=== PATIENT | female | born 1960 | race Caucasian/White ===

== ENCOUNTER 2018-07-28 20:19 | Emergency (ER) | payer OTHER ==
[2018-07-28 20:26] VITALS: RESP 18
[2018-07-28] MEDS ORDERED: HYDROcodone/APAP 5-325MG 1 EACH TAB PO STA (21:08)
--- NOTE | 2018-07-28 21:20 | ED ---
General Adult HPI - General Chief complaint: Back Pain/Injury Stated complaint: Back pain Time Seen by Provider: 07/28/18 20:26 Source: patient, family, RN notes reviewed Mode of arrival: ambulatory Limitations: no limitations - History of Present Illness Initial comments: 58-year-old female presents to the emergency department for a chief complaint of left sided mid back pain 2 days. Patient states she noticed the pain Sunday when she woke up. She states it is a sharp pain worsened with movement. Patient states she has been laying on a ball to massage out the area. She states her has also been massaging it which has been helping. Patient states that 3 days ago she was lifting rocks and may have injured it then. She denies any spinal pain. Patient denies any past spinal surgeries. She denies any bladder or bowel changes or numbness of the groin her buttocks. Patient denies any fevers, chronic steroid use, history of cancer , or IV drug abuse. Patient states she took 2 800 mg of Motrin at 1 and another 800 mg of Motrin at 5. Patient states she is also been taking Flexeril. She states that Motrin does help. Patient denies any blood in the urine. Patient has no other complaints at this time including shortness of breath, chest pain, abdominal pain, nausea or vomiting, headache, or visual changes. - Related Data Previous Rx's Medication Instructions Recorded Famotidine [Pepcid] 20 mg PO BID #20 tablet 07/28/18 Lidocaine 5% Patch [Lidoderm 5% 1 patch TOPICAL DAILY PRN #2 patch 07/28/18 Patch] predniSONE 50 mg PO DAILY #5 tablet 07/28/18 Allergies Allergy/AdvReac Type Severity Reaction Status Date / Time No Known Allergies Allergy Verified 07/28/18 20:25 Review of Systems ROS Statement: Those systems with pertinent positive or pertinent negative responses have been documented in the HPI. ROS Other: All systems not noted in ROS Statement are negative. Past Medical History Additional Past Medical History / Comment(s): right hip pain History of Any Multi-Drug Resistant Organisms: None Reported Past Surgical History: Tonsillectomy Past Psychological History: No Psychological Hx Reported Smoking Status: Former smoker Past Alcohol Use History: None Reported Past Drug Use History: None Reported General Exam Limitations: no limitations General appearance: alert, in no apparent distress Head exam: Present: atraumatic, normocephalic, normal inspection Eye exam: Present: normal appearance. Absent: scleral icterus, conjunctival injection ENT exam: Present: normal exam, normal oropharynx, mucous membranes moist, normal external ear exam Neck exam: Present: normal inspection, full ROM. Absent: tenderness, meningismus, lymphadenopathy Respiratory exam: Present: normal lung sounds bilaterally. Absent: respiratory distress, wheezes, rales, rhonchi, stridor Cardiovascular Exam: Present: regular rate, normal rhythm, normal heart sounds. Absent: systolic murmur, diastolic murmur, rubs, gallop, clicks GI/Abdominal exam: Present: soft, normal bowel sounds. Absent: distended, tenderness (No abdominal tenderness), guarding, rebound, rigid Extremities exam: Present: normal capillary refill (Capillary refill less than 2 seconds and PT pulse 2+ and lower extremities bilaterally), other (Sensation intact in the lower extremities bilaterally) Back exam: Present: tenderness (Tenderness to the left sided thoracic paraspinal muscles. Reproducible). Absent: full ROM (Patient has full flexion and extension of the lumbar spine. Patient has full rotation to the right but decreased rotation of to the left due to pain.), CVA tenderness (R), CVA tenderness (L) (No CVA tenderness), vertebral tenderness (No tenderness in the cervical, thoracic, or lumbar spines) Neurological exam: Present: alert, oriented X3, CN II-XII intact Psychiatric exam: Present: normal affect, normal mood Course Vital Signs 07/28/18 20:21 Temperature 98.2 F Pulse Rate 92 Respiratory 18 Rate Blood Pressure 152/92 O2 Sat by Pulse 97 Oximetry Medical Decision Making - Medical Decision Making 58-year-old female presents to the emergency department for a chief complaint of mid back pain 2 days. Patient was lifting heavy rocks 3 days ago and noticed the pain when wakening the next day. No other injuries. Patient states she has been massaging it out. She denies any back problems. No bladder or bowel changes or saddle anesthesia. No indications of cauda equina syndrome.. Neurovascular intact in lower extremities bilaterally and patient is ambulatory. Pain is reproducible to palpation and massaging the area helps her to feel better on exam. Tenderness is paraspinal along the mid thoracic area left side. No spinal tenderness. Pain worsens when patient twists to the left. Due to reproducibility of pain with palpation and twisting motion is likely muscular in nature. Discussed x-rays which patient agrees to withhold at this time as she does not have any spinal tenderness or blunt force injuries. Patient will follow up with primary care tomorrow. Patient will continue Motrin and add Tylenol. I did discuss only taking one 800 Motrin at a time and to take food with this. Patient will also be given steroid for the next few days. She can continue Flexeril. Patient aware to return to the emergency Department if she has any worsening symptoms. Patient requests lidocaine patch. She was also given norco here, denies driving home Disposition Clinical Impression: Back pain Disposition: HOME SELF-CARE Condition: Good Instructions: Back Pain (ED) Additional Instructions: Please use lidocaine patch as directed. Please take Motrin and Tylenol alternating every 3 hours. Do not exceed max dose of Motrin. Follow up with primary care tomorrow. Return if you have any worsening symptoms. Prescriptions: Famotidine [Pepcid] 20 mg PO BID #20 tablet Lidocaine 5% Patch [Lidoderm 5% Patch] 1 patch TOPICAL DAILY PRN #2 patch PRN Reason: Pain predniSONE 50 mg PO DAILY #5 tablet Is patient prescribed a controlled substance at d/c from ED?: No Referrals: Manjit Charles MD [Primary Care Provider] - 1-2 days Time of Disposition: 21:17
[2018-07-28] MEDS ORDERED: LIDOCAINE 5% PATCH TOPICAL STA (21:32)
[2018-07-28 21:49] VITALS: BP 147/62; PULSE 78; TEMP 98.1
== END 2018-07-28 21:35 | disposition home or self-care (01) ==
LOC: EC 20:19
DX: M54.9 Dorsalgia, unspecified (principal); Z87.891 Personal history of nicotine dependence
CPT/HCPCS: 99283

== ENCOUNTER → 2019-08-14 | Outpatient (CLI) | payer OTHER ==
--- NOTE | 2019-08-14 10:31 | US ---
EXAMINATION TYPE: US gallbladder DATE OF EXAM: 08/14/2019 COMPARISON: NONE CLINICAL HISTORY: K80.00 Cholecystitis. 1 episode of RUQ pain 1 month ago EXAM MEASUREMENTS: Liver Length: 14.0 cm Gallbladder Wall: 0.2 cm CBD: 0.8 cm Right Kidney: 9.5 x 3.8 x 4.2 cm Pancreas: visualized portions wnl, limited by overlying midline bowel gas Liver: mildly heterogeneous with 1.9 x 1.9 x 1.8cm cyst left lobe. Overall heterogeneous echotexture limits evaluation for hepatic masses. Gallbladder: limited visualization, appears to be full of shadowing stones with largest measuring 0. 9cm, wall measures wnl Evidence for sonographic Adair's sign: no CBD: dilated Right Kidney: wnl IMPRESSION: 1. Multiple gallstones are present without sonographic evidence of acute cholecystitis. However there is common bile duct dilatation. Therefore further evaluation with MRCP could be considered to evalua te for choledocholithiasis or distal common bile duct stricture/obstructing mass. 2. Mildly heterogenous hepatic echotexture most commonly related to mild degree hepatic steatosis. Co rrelate with liver function tests. Benign-appearing hepatic cyst is incidentally noted.
== END | disposition home or self-care (01) ==
LOC: RADUSWWP 08:45
PROVIDERS: ATTEND Surgery
DX: K80.20 Calculus of gallbladder without cholecystitis without obstruction (principal); K76.0 Fatty (change of) liver, not elsewhere classified; K76.89 Other specified diseases of liver
CPT/HCPCS: 76705

== ENCOUNTER → 2020-03-26 | Outpatient (CLI) | payer OTHER | END | disposition home or self-care (01) | LOC: LABWHC1 11:02 | PROVIDERS: ATTEND Surgery | DX: Z11.59 Encounter for screening for other viral diseases (principal) | CPT/HCPCS: 87635 ==

== ENCOUNTER → 2020-03-29 | Day surgery (SDC) | payer OTHER ==
[2020-03-26 11:36] VITALS: BMI 33.0
[~2020-03-29] MED LIST: ACETAMINOPHEN TAB 500 MG TAB PO ONE; ALFENTANIL 500 MCG/ML 2 ML AMP IV ONE; BUPIVACAIN-EPI 0.25%-1:200,000 30 ML VIAL SQ ONE; DEXAMETHASONE SOD PHOSPHATE 10 MG/ML 1 ML VIAL IV ONE; GLYCOPYRROLATE 0.2 MG/ML 2 ML VIAL ONE; HEPARIN SODIUM,PORCINE 5,000 UNIT/ML 1 ML VIAL SQ ONE; HYDROmorphone (PF) 1 MG/ML ONE; LACTATED RINGERS 1,000 ML IV ONE; LACTATED RINGERS 1,000 ML IV SCH; LIDOCAINE 1% (10MG/ML) FOR IV START INTRADERMA ONE; LIDOCAINE 1% INJ 10MG/ML (20 ML MDV) ONE; MIDAZOLAM 2 MG/2 ML VIAL ONE; NEOSTIGMINE 1 MG/ML 10 ML VIAL ONE; PROPOFOL 10 MG/ML 20 ML VIAL IV ONE; ROCURONIUM BROMIDE 10 MG/ML 5 ML VIAL IV ONE; SCOPOLAMINE 1.5MG/72HR PATCH TRANSDERM ONE; SUCCINYLCHOLINE CHLORIDE 100 MG/5 ML SYR IV ONE; diphenhydrAMINE 50 MG/ML 1 ML VIAL IVP ONE
[2020-03-29 07:33] VITALS: RESP 16
[2020-03-29] MEDS: ONDANSETRON 4 MG/2 ML VIAL IVP ONE ×2 (07:34→08:50)
[2020-03-29] MEDS: HYDROmorphone 0.5 MG/0.5 ML SYRINGE IVP PRN ×2 (08:41→08:50)
--- NOTE | 2020-03-29 08:43 | P.GSHP ---
History of Present Illness H&P Date: 03/29/20 Chief Complaint: Right upper quadrant pain This a 60-year-old female who presents today for laparoscopically stenting. Patient's echo his right arm pain. Recent ultrasound shows evidence of cholelithiasis. Past Medical History Additional Past Medical History / Comment(s): ABDOMINAL AORTIC ANEURYSM , STOMACH ULCERS A CHILD., STATES HAVING ABD PAIN, NAUSEA & DIARRHEA. History of Any Multi-Drug Resistant Organisms: None Reported Past Surgical History: Tonsillectomy Additional Past Surgical History / Comment(s): TONSILLS (9 YRS OLD) Past Anesthesia/Blood Transfusion Reactions: No Reported Reaction, Motion Sickness Past Psychological History: No Psychological Hx Reported Smoking Status: Current some day smoker Past Alcohol Use History: Occasional Additional Past Alcohol Use History / Comment(s): SMOKES OCCASIONALLY, STARTED SMOKING AGE 10, SMOKED 1/2 PPD, QUIT SMOKING APPROX 4 YRS AGO-EXCEPT OCCASIONALLY NOW. Past Drug Use History: None Reported - Past Family History Mother Family Medical History: Cancer Medications and Allergies Home Medications Medication Instructions Recorded Confirmed Type Acetaminophen Tab [Tylenol] 650 mg PO DIRECTED PRN 03/26/20 03/29/20 History Vitamin B Complex 1 each PO HS 03/26/20 03/29/20 History Allergies Allergy/AdvReac Type Severity Reaction Status Date / Time No Known Allergies Allergy Verified 03/26/20 11:10 Surgical - Exam Vital Signs Temp Pulse Resp BP Pulse Ox 97 F L 74 16 147/78 97 03/29/20 07:31 03/29/20 07:31 03/29/20 07:31 03/29/20 07:31 03/29/20 07:31 - General well developed, well nourished, no distress - Eyes PERRL - ENT normal pinna - Neck no masses - Respiratory normal expansion - Cardiovascular Rhythm: regular - Abdomen Abdomen: soft, non tender Assessment and Plan Assessment: Right upper quadrant pain Cholelithiasis We'll perform laparoscopic cholecystectomy
--- NOTE | 2020-03-29 08:46 | P.OP ---
Date of Procedure: 03/29/20 Preoperative Diagnosis: Cholecystitis Postoperative Diagnosis: Cholecystitis Procedure(s) Performed: Laparoscopic cholecystectomy Anesthesia: TENZIN Surgeon: Luisito Ortega Estimated Blood Loss (ml): 5 Pathology: other (Gallbladder) Condition: stable Disposition: PACU Description of Procedure: The patient was placed on the operating table. The patient received a general endotracheal tube anesthesia. The patients abdomen was prepped and draped in the usual sterile fashion. Through an infraumbilical stab incision, the fascia of the anterior abdominal wall was grasped with a pair of Kochers and then the Veress needle was placed in the peritoneal cavity. Position of the Veress needle was confirmed with positive drop test. The abdomen was then insufflated. After adequate insufflation, the 10 mm trocar was placed in the peritoneal cavity. Following this the laparoscope was placed in the peritoneal cavity. The patient was placed in the head-up, right side up position and then a 5 mm trocar was placed in the right lateral and right subcostal position under direct visualization. A 8 mm trocar was placed in the epigastric position. The gallbladder was grasped in the fundus and infundibulum. Traction on the gallbladder was placed in the lateral and the cephalad positions. The triangle of Calot was visualized.. The cystic duct was bluntly dissected until the union of the cystic duct and common bile duct was seen. A critical view of safety was achieved. The cystic duct was then divided and sealed with the Harmonic scissors. A PDS Endoloop was then placed throughout the cystic duct stump. The cystic artery divided and sealed with the Harmonic scissors. The gallbladder was then removed from the liver bed using Harmonic scissors. The gallbladder was then extracted through the epigastric port site. Operative field was checked for any bleeding spots and Harmonic scissors was used to coagulate the liver bed. The abdomen was irrigated. The trocars were removed. The skin was closed using interrupted 3-0 Vicryl suture. Dermabond dressing were applied. The patient tolerated the procedure well.
[2020-03-29 08:47] VITALS: TEMP 97.9
[2020-03-29 09:46] VITALS: BP 92/55; PULSE 57
== END ==
LOC: OR 07:08
PROVIDERS: ATTEND Surgery
DX: K80.12 Calculus of gallbladder with acute and chronic cholecystitis without obstruction (principal); J44.9 Chronic obstructive pulmonary disease, unspecified; I71.4 Abdominal aortic aneurysm, without rupture; K21.9 Gastro-esophageal reflux disease without esophagitis; F17.210 Nicotine dependence, cigarettes, uncomplicated; Z87.11 Personal history of peptic ulcer disease; Z90.89 Acquired absence of other organs; Z80.9 Family history of malignant neoplasm, unspecified
CPT/HCPCS: 88304; 47562; J2250; J1200; J1644; J1100; J2710; J0690; J2405; J2001; J1170 ×2; J0330; J2704

== ENCOUNTER 2020-08-12 07:27 | Day surgery (SDC) | payer OTHER ==
[2020-08-09 14:07] VITALS: BMI 32.1
--- NOTE | 2020-08-12 06:41 | P.GSHP ---
History of Present Illness H&P Date: 08/12/20 CHIEF COMPLAINT: Colon screen HISTORY OF PRESENT ILLNESS: The patient is a 60-year-old female who presents for colon screen. Lower endoscopy was offered for further evaluation and management. PAST MEDICAL HISTORY: Please see list. PAST SURGICAL HISTORY: Please see list. MEDICATIONS: Please see list. ALLERGIES: Please see list. SOCIAL HISTORY: No illicit drug use FAMILY HISTORY: No reports of Crohn disease or ulcerative colitis. REVIEW OF ORGAN SYSTEMS: CONSTITUTIONAL: No reports of fevers or chills. PHYSICAL EXAM: VITAL SIGNS: Stable GENERAL: Well-developed pleasant in no acute distress. HEENT: No scleral icterus. Extraocular movements grossly intact. Moist buccal mucosa. NECK: Supple without lymphadenopathy. CHEST: Unlabored respirations. Equal bilateral excursions. CARDIOVASCULAR: Regular rate and rhythm. Distal 2+ pulses. ABDOMEN: Soft, nontender, nondistended. MUSCULOSKELETAL: No clubbing, cyanosis, or edema. ASSESSMENT: 1. Colon screen. PLAN: 1. Recommend proceeding with a lower endoscopy Past Medical History Past Medical History: No Reported History Additional Past Medical History / Comment(s): right hip pain History of Any Multi-Drug Resistant Organisms: None Reported Past Surgical History: Cholecystectomy, Tonsillectomy Additional Past Surgical History / Comment(s): Cyst removed from L breast. Past Anesthesia/Blood Transfusion Reactions: No Reported Reaction Smoking Status: Former smoker - Past Family History Mother Family Medical History: Cancer Medications and Allergies Home Medications Medication Instructions Recorded Confirmed Type Acetaminophen Tab [Tylenol] 650 mg PO DIRECTED PRN 03/26/20 08/09/20 History Vitamin B Complex 1 each PO HS 03/26/20 08/09/20 History Omeprazole 20 mg PO DAILY 08/09/20 08/09/20 History Policosanol(Unknown Dose) 1 tab PO DAILY 08/09/20 08/09/20 History Allergies Allergy/AdvReac Type Severity Reaction Status Date / Time No Known Allergies Allergy Verified 08/09/20 13:45
[~2020-08-12 07:27] MED LIST changes: -ACETAMINOPHEN TAB 500 MG TAB PO ONE; -ALFENTANIL 500 MCG/ML 2 ML AMP IV ONE; -BUPIVACAIN-EPI 0.25%-1:200,000 30 ML VIAL SQ ONE; -DEXAMETHASONE SOD PHOSPHATE 10 MG/ML 1 ML VIAL IV ONE; -GLYCOPYRROLATE 0.2 MG/ML 2 ML VIAL ONE; -HEPARIN SODIUM,PORCINE 5,000 UNIT/ML 1 ML VIAL SQ ONE; -HYDROmorphone (PF) 1 MG/ML ONE; -LACTATED RINGERS 1,000 ML IV ONE; -LIDOCAINE 1% (10MG/ML) FOR IV START INTRADERMA ONE; -LIDOCAINE 1% INJ 10MG/ML (20 ML MDV) ONE; -MIDAZOLAM 2 MG/2 ML VIAL ONE; -NEOSTIGMINE 1 MG/ML 10 ML VIAL ONE; -PROPOFOL 10 MG/ML 20 ML VIAL IV ONE; -ROCURONIUM BROMIDE 10 MG/ML 5 ML VIAL IV ONE; -SCOPOLAMINE 1.5MG/72HR PATCH TRANSDERM ONE; -SUCCINYLCHOLINE CHLORIDE 100 MG/5 ML SYR IV ONE; -diphenhydrAMINE 50 MG/ML 1 ML VIAL IVP ONE
[2020-08-12 07:44] VITALS: RESP 16; TEMP 97
[2020-08-12] MEDS ORDERED: PROPOFOL 10 MG/ML 20 ML VIAL IV ONE (08:19)
--- NOTE | 2020-08-12 08:53 | P.PCN ---
Date of Procedure: 08/12/20 Description of Procedure: PREOPERATIVE DIAGNOSIS: Colonoscopy screening. POSTOPERATIVE DIAGNOSIS: Colonoscopy screening. OPERATION: Colonoscopy to the cecum, ileocecal valve and appendiceal orifice. SURGEON: Farida Morocho MD. ANESTHESIA: MAC. INDICATIONS: The patient is a 60-year-old female who presents for her first colonoscopy screening. Benefits and risks were described and informed consent was obtained. DESCRIPTION OF PROCEDURE: The patient had undergone Gatorade, MiraLAX and Dulcolax prep. She had been brought into the operating room and laid in the left lateral decubitus position. After adequate intravenous sedation, the rectum was examined with 2% lidocaine jelly. No external hemorrhoids were encountered. The rectal tone was within normal limits. No lesions were palpated in the rectal vault. An Olympus colonoscope was advanced until the cecum, ileocecal valve and appendiceal orifice were clearly viewed. The prep was fair. The colon was moderately redundant requiring abdominal pressure to advance the scope. No scattered diverticulosis was encountered. No colonic polyps were found. No evidence of focal colitis was found. Retroflexion of the scope demonstrated no internal hemorrhoids. The colon was desufflated. The patient had tolerated the procedure well. Withdrawal time was over 6 minutes. FINDINGS: Aronchick preparation quality scale 2 (1-5) No internal hemorrhoids No external prolapsed hemorrhoids. No arteriovenous malformations. No adenomatous polyps. No focal colitis. No sigmoid diverticulosis RECOMMENDATIONS: Lower endoscopy in 2029 or Cologaurd Plan - Discharge Summary Discharge Rx Participant: Yes New Discharge Prescriptions: Continue Vitamin B Complex 1 each PO HS Policosanol(Unknown Dose) 1 tab PO DAILY Omeprazole 20 mg PO DAILY Ibuprofen 400 mg PO Q6H Discharge Medication List Vitamin B Complex 1 each PO HS 03/26/20 [History] Omeprazole 20 mg PO DAILY 08/09/20 [History] Policosanol(Unknown Dose) 1 tab PO DAILY 08/09/20 [History] Ibuprofen 400 mg PO Q6H 08/12/20 [History] Follow up Appointment(s)/Referral(s): Farida Morocho MD [STAFF PHYSICIAN] - As Needed Patient Instructions/Handouts: *Sur[facility] - (Anesthesia) Endoscopy Discharge Instructions, Colonoscopy (DC) Activity/Diet/Wound Care/Special Instructions: Repeat colonoscopy 2029 Discharge Disposition: HOME SELF-CARE
[2020-08-12 09:03] VITALS: BP 136/85; PULSE 62
== END 2020-08-12 09:44 | disposition home or self-care (01) ==
LOC: ORWHC2ENDO 07:27
PROVIDERS: ATTEND Surgery Plastic and Reconstructive Surgery
DX: Z12.11 Encounter for screening for malignant neoplasm of colon (principal); Q43.8 Other specified congenital malformations of intestine; K21.9 Gastro-esophageal reflux disease without esophagitis; M25.551 Pain in right hip; Z90.49 Acquired absence of other specified parts of digestive tract; Z98.890 Other specified postprocedural states; Z87.891 Personal history of nicotine dependence; Z80.9 Family history of malignant neoplasm, unspecified; Z97.2 Presence of dental prosthetic device (complete) (partial); Z79.1 Long term (current) use of non-steroidal anti-inflammatories (NSAID); Z79.899 Other long term (current) drug therapy
CPT/HCPCS: G0121; J2704; 45378

== ENCOUNTER 2024-08-03 19:01 | Emergency (ER) | payer OTHER ==
[2024-08-03 19:06] VITALS: TEMP 97.4
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
[2024-08-03] MEDS: LIDOCAINE 4% CREAM 5 GM TUBE TOPICAL ONE (20:07)
[2024-08-03] MEDS: BACITRACIN OINT 1 EACH PACKET TOPICAL ONE (20:07)
[2024-08-03 20:29] LABS: Appearance,Urine Cloudy (Clear); Bacteria,Urine Rare /hpf; Bilirubin,Urine Negative (Negative); Blood,Urine Negative (Negative); Color,Urine Yellow; Glucose,Urine (UA) Negative (Negative); Hyaline Casts,Urine 1 /lpf (0-2); Ketones,Urine Negative (Negative); Leukocyte Esterase,Urine Large (Negative); Mucus,Urine Rare /hpf; Nitrite,Urine Positive (Negative); Protein,Urine Negative (Negative); RBC,Urine 2 /hpf (0-5); Specific Gravity,Urine 1.021 (1.001-1.035); Squamous Epithelial Cell,Urine 1 /hpf (0-4); Urobilinogen,Urine <2.0 mg/dL (<2.0); WBC,Urine 27 /hpf (0-5)
[2024-08-03] MEDS: cefTRIAXone 1,000 MG VIAL (IM USE) IM STA (21:14)
[2024-08-03 21:16] VITALS: BP 162/93; PULSE 67; RESP 20
== END 2024-08-03 21:15 | disposition home or self-care (01) ==
LOC: EC 19:01
CPT/HCPCS: 81001; 99284

== ENCOUNTER → 2025-03-18 | Outpatient (CLI) | payer OTHER ==
[2025-03-18 15:20] LABS: HCT 48.3 % (37.2-46.3); HGB 15.6 g/dL (12.0-15.0); MCH 29.1 pg (27.0-32.0); MCHC 32.3 g/dL (32.0-37.0); MCV 89.9 FL (80.0-97.0); Mean Platelet Volume 9.9 FL (9.5-12.2); NRBC Per 100 WBC 0 X 10*3/uL (0.00-0.01); Platelet Count 277 X 10*3/uL (140-440); RBC 5.37 X 10*6/uL (4.10-5.20); RDW 13.2 % (11.5-14.5); WBC 6.03 X 10*3/uL (4.50-10.00)
[2025-03-18 15:21] LABS: Basophils # (A) 0.03 X 10*3/uL (0.00-0.10); Basophils % (A) 0.5 %; Eosinophils # (A) 0.19 X 10*3/uL (0.04-0.35); Eosinophils % (A) 3.2 %; Lymphocytes # (A) 1.31 X 10*3/uL (0.90-5.00); Lymphocytes % (A) 21.7 %; Monocytes # (A) 0.35 X 10*3/uL (0.20-1.00); Monocytes % (A) 5.8 %; Neutrophils # (A) 4.14 X 10*3/uL (1.80-7.70); Neutrophils % (A) 68.6 %
== END | disposition home or self-care (01) ==
LOC: LABPAT 08:12
PROVIDERS: ATTEND Obstetrics & Gynecology
DX: Z01.818 Encounter for other preprocedural examination (principal); R93.89 Abnormal findings on diagnostic imaging of other specified body structures
CPT/HCPCS: 85025; 93005

== ENCOUNTER 2025-03-23 08:02 | Day surgery (SDC) | payer OTHER ==
[~2025-03-23 08:02] MED LIST changes: +LIDOCAINE 1% (10MG/ML) FOR IV START INTRADERMA PRN; +MIDAZOLAM 2 MG/2 ML VIAL IV PRN; +Pre Op ABX Message 1 EACH MISC MISCELLANE ONE; +fentaNYL (PF) 50 MCG/ML 2 ML AMP IVP PRN
[2025-03-23] MEDS: IV FLUID CONTINUATION 1,000 ML IV ONE ×2 (08:27→12:00)
[2025-03-23 08:32] VITALS: TEMP 97
[2025-03-23] MEDS: ONDANSETRON 4 MG/2 ML VIAL IVP ONE (08:39)
[2025-03-23] MEDS: DEXAMETHASONE SOD PHOSPHATE 4 MG/ML 1 ML VIAL IV ONE (08:39)
[2025-03-23] MEDS ORDERED: MIDAZOLAM 2 MG/2 ML VIAL ONE (09:33)
[2025-03-23] MEDS ORDERED: KETOROLAC 15 MG/ML 1 ML VIAL ONE (09:33)
[2025-03-23] MEDS ORDERED: fentaNYL (PF) 50 MCG/ML 2 ML AMP ONE (09:33)
[2025-03-23] MEDS ORDERED: PROPOFOL 10 MG/ML 20 ML VIAL IV ONE (09:33)
[2025-03-23] MEDS ORDERED: LIDOCAINE 1% INJ 10MG/ML (20 ML MDV) ONE (09:33)
[2025-03-23] MEDS: SORBITOL 3% IRRIGATION 3,000 ML IRRIGATION ONE (09:40)
[2025-03-23] MEDS ORDERED: ONDANSETRON 4 MG/2 ML VIAL IVP PRN (10:08)
[2025-03-23] MEDS ORDERED: SIMETHICONE 80 MG CHEWABLE PO PRN (10:08)
[2025-03-23] MEDS ORDERED: KETOROLAC 15 MG/ML 1 ML VIAL IVP PRN (10:08)
[2025-03-23] MEDS ORDERED: METOCLOPRAMIDE 5 MG/ML 2 ML VIAL IVP PRN (10:08)
[2025-03-23] MEDS ORDERED: diphenhydrAMINE 50 MG/ML 1 ML VIAL IVP PRN (10:08)
[2025-03-23] MEDS ORDERED: diphenhydrAMINE 25 MG CAP PO PRN (10:08)
[2025-03-23] MEDS ORDERED: IBUPROFEN 600 MG TAB PO PRN (10:08)
[2025-03-23] MEDS ORDERED: ACETAMINOPHEN TAB 325 MG TAB PO PRN (10:08)
[2025-03-23] MEDS ORDERED: LACTATED RINGERS 1,000 ML IV SCH (10:15)
--- NOTE | 2025-03-23 10:16 | P.OP ---
Date of Procedure: 03/23/25 Preoperative Diagnosis: #1. Thickened endometrial stripe by ultrasound Postoperative Diagnosis: Same plus #2. Endometrial polyps Procedure(s) Performed: #1. Diagnostic hysteroscopy #2. Endometrial polypectomy #3. Dilation and curettage Anesthesia: other (General By face mask) Surgeon: Jose Molina Estimated Blood Loss (ml): 2 IV fluids (ml): 400 Urine output (ml): 30 Pathology: other (Endometrial polyps and curettings) Condition: stable Disposition: PACU Operative Findings: Preoperative pelvic examination demonstrated a roughly 4-week retroverted mobile normal shaped uterus with normal adnexa bilaterally. Intraoperatively, the uterus sounded to approximately 8.5 cm. Using the hysteroscope and dilating the cavity with sorbitol, the bilateral tubal ostia were seen. There were at least 2 moderately sized polypoid structures originating from the right superior lateral portion of the uterine fundus. Several polypoid structures were removed, 1 rather large and appeared to be an intact polyp. Minimal tissue was extracted with curettage and the typical gritty texture was encountered throughout. The patient is a candidate for vaginal hysterectomy should it become necessary in the future. Description of Procedure: The patient was prepped and draped in usual fashion after general anesthesia was administered by the anesthesiologist. A weighted speculum was placed and the bladder drained of approximately 30 mL of clear zack urine. The anterior lip of the cervix is grasped with a single-tooth tenaculum and the uterine sound utilized to sound uterus to approximately 8.5 cm. Serial dilation was carried out to admit the diagnostic hysteroscope which was placed into the uterine cavity and the cavity distended with sorbitol. The findings are as noted above with the bilateral tubal ostia seen and otherwise background of what appeared to be very atrophic endometrium. There were 2 fairly large polyps occupying the middle to upper right portion of the uterus and appear to be originating from the lateral to slightly posterior sidewall. After adequate hysteroscopy been carried out, the scope was set aside and a polyp forceps introduced. Several passes were made with the polyp forceps with extraction of polypoid tissue on the first several including 1 very large likely intact polyp. After no tissue was being further returned, the polyp forceps was set aside in favor of a medium sharp curette which was utilized to thoroughly and circumferentially curette the endometrial cavity onto a Telfa placed in the vagina. The typical gritty texture was encountered throughout and there was no significant tissue produced. Special attention was paid with the curettage to the area where the polyps were thought to be originating. All instrumentation was removed. There is no ongoing bleeding from either the cervix nor from the tenaculum sites. Estimated blood loss for the case was 2 mL or less. There were no complications. All sponge, instrument, and needle counts were correct. The patient tolerated the procedure well and proceeded to the recovery room in stable condition.
[2025-03-23] MEDS: HYDROmorphone 0.5 MG/0.5 ML SYRINGE IVP PRN (10:25)
[2025-03-23 10:59] VITALS: RESP 18
[2025-03-23 11:17] VITALS: BP 122/79; PULSE 54
== END 2025-03-23 12:31 | disposition home or self-care (01) ==
LOC: OR 08:02
PROVIDERS: ATTEND Obstetrics & Gynecology
DX: N84.0 Polyp of corpus uteri (principal); R93.89 Abnormal findings on diagnostic imaging of other specified body structures; K21.9 Gastro-esophageal reflux disease without esophagitis; E78.5 Hyperlipidemia, unspecified; E66.9 Obesity, unspecified
CPT/HCPCS: 88305; 58558; J2250; J1100; J2405; J2003; J3010; J1885; J2704; J1171